=== PATIENT | female | born 1990 | race Caucasian/White ===

== ENCOUNTER 2019-09-02 17:50 | Emergency (ER) | payer MEDICAID, OTHER ==
[~2019-09-02] VITALS: Ht 152.4 cm; Wt 60.0 kg
[2019-09-02] MEDS ORDERED: LORazepam 1MG TABLET PO ONE (18:30)
[2019-09-02] MEDS ORDERED: LORazepam 1MG TABLET ONE (18:30)
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
[2019-09-02 19:00] LABS: BASOPHILS # (AUTO) 0.01 x10^3/uL (0-0.1); BASOPHILS % (AUTO) 0 % (0-1); EOSINOPHILS # (AUTO) 0.06 x10^3/uL (0-0.4); EOSINOPHILS % (AUTO) 1 % (1-7); LYMPHOCYTES # (AUTO) 2.17 x10^3/uL (1-3.4); LYMPHOCYTES % (AUTO) 32 % (22-44); MD NO; MEAN CORPUSCULAR HEMOGLOBIN 31.5 pg (27.0-34.8); MEAN CORPUSCULAR HGB CONC 34.1 g/dL (32.4-35.8); MEAN CORPUSCULAR VOLUME 92.1 fL (80-100); MEAN PLATELET VOLUME 8.3 fL (7.4-10.4); MONOCYTES # (AUTO) 0.27 x10^3/uL (0.2-0.8); MONOCYTES % (AUTO) 4 % (2-9); NEUTROPHILS # (AUTO) 4.16 x10^3/uL (1.8-6.8); NEUTROPHILS % (AUTO) 62 % (42-75); PLATELET COUNT 267 x10^3/uL (130-400); RED BLOOD COUNT 4.79 x10^6/uL (3.82-5.3); RED CELL DISTRIBUTION WIDTH 12.7 % (9.6-15.2)
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
[2019-09-02 19:06] LABS: ALBUMIN 4.8 g/dL (3.4-5.0); CALCIUM 8.6 mg/dL (8.5-10.1); CHLORIDE 116 mmol/L (98-107)
[2019-09-02 19:14] LABS: ALANINE AMINOTRANSFERASE 20 U/L (12-78); ALKALINE PHOSPHATASE 51 U/L (45-117); ANION GAP 7 mmol/L (5-15); BILIRUBIN,TOTAL 0.7 mg/dL (0.2-1.0); CREATININE 0.81 mg/dL (0.55-1.02); SALICYLATE LEVEL 4.7 mg/dL (2.8-20.0); TOTAL PROTEIN 8.2 g/dL (6.4-8.2)
[2019-09-02] MEDS: PLEASE ENTER ALLERGIES MC SCH (19:30)
[2019-09-02] MEDS ORDERED: ZIPRASIDONE 20 MG INJ IM ONE (20:00)
[2019-09-02] MEDS ORDERED: LORazepam 2 MG/ML, 1ML ONE (20:00)
--- NOTE | 2019-09-02 20:00 | NUR ---
LEONARDA lund arrived. as
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
--- NOTE | 2019-09-02 20:24 | NUR ---
report to christal lund. as
[2019-09-02] MEDS ORDERED: ONDANSETRON ODT 4 MG PO ONE (20:30)
[2019-09-02] MEDS ORDERED: LORazepam 2 MG/ML, 1ML IM ONE (20:30)
[2019-09-02] MEDS ORDERED: ONDANSETRON ODT 4 MG ONE (20:31)
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
--- NOTE | 2019-09-02 22:48 | NUR ---
Sleeping, drowsy but cooperative. Addendum: 09/03/19 at 0508 by JOSUÉ SITTER AT BEDSIDE FOR CONTINOUS MONITORING
--- NOTE | 2019-09-03 00:50 | NUR ---
Pt has been sleeping, easily aroused, no acute distress noted.
--- NOTE | 2019-09-03 01:16 | NUR ---
pt resting on gurney with eyes closed, nadn, equal chest/fall observed, room secured, sitter at doorway for continous monitoring. hospital bed ordered.
--- NOTE | 2019-09-03 02:51 | NUR ---
Pt up to restroom for urine sample, sample from patient appears diluted and the specimen cup was cold to the touch. Sample sent to lab.
[2019-09-03] MEDS: PLEASE ENTER ALLERGIES MC SCH (03:30)
[2019-09-03 03:39] LABS: AMPHETAMINE SCREEN, URINE Negative (Negative); BARBITURATE SCREEN, URINE Negative (Negative); BENZODIAZEPINE SCREEN, URINE Negative (Negative); CANNABINOID SCREEN, URINE Positive (Negative); COCAINE SCREEN, URINE Negative (Negative); METHADONE SCREEN, URINE Negative (Negative); OPIATE SCREEN, URINE Negative (Negative)
--- NOTE | 2019-09-03 04:20 | NUR ---
PROVIDED PT WITH HOSPITAL BED, ROOM REMAINS SECURED, SITTER AT DOORWAY FOR CONTINOUS MONITORING
--- NOTE | 2019-09-03 05:12 | NUR ---
Pt sleeping, equal chest rise, no acute distress noted.
--- NOTE | 2019-09-03 06:16 | NUR ---
Reported to ER provider of medication recommendations by LEONARDA pt also requesting nicotine patch and c/o strong. Per provider he will place orders.
[2019-09-03] MEDS ORDERED: AZITHROMYCIN 500 MG TABLET ONE (06:21)
[2019-09-03] MEDS ORDERED: NICOTINE 21 MG/24 HR PATCH.TD24 ONE (06:21)
[2019-09-03] MEDS ORDERED: CEFTRIAXONE 250 MG ONE (06:21)
[2019-09-03] MEDS ORDERED: IBUPROFEN 200 MG TABLET ONE (06:22)
[2019-09-03] MEDS ORDERED: NICOTINE 21 MG/24 HR PATCH.TD24 TD ONE (06:30)
[2019-09-03] MEDS ORDERED: AZITHROMYCIN 500 MG TABLET PO ONE (06:30)
[2019-09-03] MEDS ORDERED: CEFTRIAXONE 250 MG IM ONE (06:30)
[2019-09-03] MEDS ORDERED: IBUPROFEN 200 MG TABLET PO ONE (06:30)
--- NOTE | 2019-09-03 06:33 | NUR ---
Medicated per MAR.
[2019-09-03 06:53] VITALS: BP 102/60
--- NOTE | 2019-09-03 06:53 | NUR ---
Assumed care of pt t 0645. Report erceived from RICKY Blount. Pt is awake and resting comfortably in bed. Sittter at doorway.
--- NOTE | 2019-09-03 06:53 | NUR ---
Report given to Caryl GARCÍA.
--- NOTE | 2019-09-03 08:02 | NUR ---
Pt asleep in bed. Respirations are even and unlabored. Sitter at doorway.
--- NOTE | 2019-09-03 09:03 | NUR ---
Pt still sleeping. Breathing even and unlabored. Breakfast tray remains untouched despite PSA attempt to get pt to eat a little. Sitter at doorway.
--- NOTE | 2019-09-03 10:05 | NUR ---
Pt cooperative. Up to make a phone call, steady on her feet, PSA with pt. Requested water.
--- NOTE | 2019-09-03 10:13 | NUR ---
Pt tearful after leaving phone message for . Said she apologized to him for her "drinking problem" and DUI. Pt stated that her is really mad at her and wants her to stop drinking.
--- NOTE | 2019-09-03 11:13 | NUR ---
Pt sleeping comfortably in bed. Sitter at doorway.
--- NOTE | 2019-09-03 11:40 | NUR ---
Jordyn Pham APRN assessing pt at bedside.
[2019-09-03] MEDS ORDERED: LORazepam 1MG TABLET PO ONE (12:30)
[2019-09-03] MEDS ORDERED: SERTRALINE 50MG TABLET PO SCH (12:30)
[2019-09-03] MEDS ORDERED: SERTRALINE 50MG TABLET ONE (12:47)
[2019-09-03] MEDS ORDERED: LORazepam 1MG TABLET ONE (12:47)
--- NOTE | 2019-09-03 13:12 | NUR ---
Pt resting comfortably in bed. Ate lunch. Ativan 1mg PO and first dose of Zoloft 50mg PO given to pt after lunch. Sitter at bedside.
--- NOTE | 2019-09-03 13:57 | NUR ---
Pt sleeping. RR even and unlabored. No distress. Sitter at doorway.
--- NOTE | 2019-09-03 15:04 | NUR ---
Pt tearful in bed. casework manager at bedside. Was escorted to bathroom earlier by PSA.
--- NOTE | 2019-09-03 15:28 | NUR ---
is at bedside talking to [employer] Eng[employer].
--- NOTE | 2019-09-03 16:00 | NUR ---
Pt resting in room with at bedside. Pt will be discharged today, per FERNY Pham APRN.
== END 2019-09-03 16:47 | disposition home or self-care (01) ==
LOC: ED 09-03 05:55
DX: R45.851 Suicidal ideations (principal); F10.220 Alcohol dependence with intoxication, uncomplicated; F32.9 Major depressive disorder, single episode, unspecified; Y90.0 Blood alcohol level of less than 20 mg/100 ml
CPT/HCPCS: 36415; 80053; 80307; 84703; 85025; 96372; 99284; J0696; J2060; Q0162

== ENCOUNTER 2019-12-25 08:01 | Emergency (ER) | payer SELFPAY ==
[~2019-12-25] VITALS: Ht 152.4 cm; Wt 58.0 kg
--- NOTE | 2019-12-25 08:12 | NUR ---
pt changed into a gown. she is tearful, and afraid for her current social situation. newly homeless. comfort measufres provided, and we are awiaiting an md to assess.
[2019-12-25] MEDS ORDERED: LORazepam 2 MG/ML, 1ML IVPush ONE (08:30)
[2019-12-25] MEDS ORDERED: SODIUM CHLORIDE 0.9% 1,000ML IVBOLUS ONE (08:30)
[2019-12-25] MEDS ORDERED: LORazepam 2 MG/ML, 1ML ONE (08:33)
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
[2019-12-25 08:53] LABS: BASOPHILS # (AUTO) 0.07 x10^3/uL (0-0.1); BASOPHILS % (AUTO) 1 % (0-1); EOSINOPHILS # (AUTO) 0.02 x10^3/uL (0-0.4); EOSINOPHILS % (AUTO) 0 % (1-7); LYMPHOCYTES # (AUTO) 1.52 x10^3/uL (1-3.4); LYMPHOCYTES % (AUTO) 28 % (22-44); MD NO; MEAN CORPUSCULAR HEMOGLOBIN 32.3 pg (27.0-34.8); MEAN PLATELET VOLUME 8.2 fL (7.4-10.4); MONOCYTES # (AUTO) 0.44 x10^3/uL (0.2-0.8); MONOCYTES % (AUTO) 8 % (2-9); NEUTROPHILS # (AUTO) 3.38 x10^3/uL (1.8-6.8); NEUTROPHILS % (AUTO) 62 % (42-75); PLATELET COUNT 274 x10^3/uL (130-400)
[2019-12-25 08:57] LABS: ALBUMIN 3.7 g/dL (3.4-5.0); ANION GAP 13 mmol/L (5-15); CALCIUM 8.7 mg/dL (8.5-10.1); CHLORIDE 108 mmol/L (98-107); CREATININE 0.85 mg/dL (0.55-1.02)
--- NOTE | 2019-12-25 08:57 | NUR ---
Pt given 2mg Ativan, resting, no needs at this time.
[2019-12-25 09:01] LABS: TROPONIN I < 0.015 ng/mL (0.000-0.045)
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
--- NOTE | 2019-12-25 09:29 | NUR ---
Pt resting post ativan, BP improved, no needs at this time. Waiting on UA.
--- NOTE | 2019-12-25 10:31 | NUR ---
Pt sleeping, arousable to light stimulation. Will continue to monitor.
--- NOTE | 2019-12-25 11:20 | NUR ---
Pt taken to bathroom via wheelchair, unsteady on feet. UA provided. 2nd bolus infusing. [employer] at bedside.
[2019-12-25] MEDS ORDERED: PRAZ2CAP2 PO (11:22)
[2019-12-25] MEDS ORDERED: ATEN50TA41 PO (11:23)
[2019-12-25 12:01] LABS: MICROSCOPIC INDICATED
[2019-12-25 13:15] VITALS: BP 141/79
== END 2019-12-25 13:17 | disposition home or self-care (01) ==
LOC: ED 11:58
DX: F15.129 Other stimulant abuse with intoxication, unspecified (principal); F41.1 Generalized anxiety disorder; R45.1 Restlessness and agitation; R44.3 Hallucinations, unspecified; R94.31 Abnormal electrocardiogram [ECG] [EKG]
CPT/HCPCS: 36415; 71045; 80048; 81001; 82040; 84484; 84703; 85025; 87086; 93005; 96374; 99285; J2060; J7030

== ENCOUNTER 2020-06-27 19:50 | Emergency (ER) | payer OTHER ==
[~2020-06-27] VITALS: Ht 154.9 cm; Wt 55.0 kg
[~2020-06-27 19:50] MED LIST: ATEN50TA41 PO; PRAZ2CAP2 PO
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
[2020-06-27 20:04] VITALS: BP 158/98
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
--- NOTE | 2020-06-27 20:28 | NUR ---
went to start iv and patient screaming that she wants to leave. she was adament that she wants no iv / no meds/no blood draw and wants to leave. discussed to pile driver operator barge mounted and all tried to get patient to stay she demanded to leave. ama paper signed
[2020-06-27] MEDS ORDERED: LORazepam 2 MG/ML, 1ML IVPush ONE (20:30)
[2020-06-27] MEDS ORDERED: SODIUM CHLORIDE FLUSH 10ML SYR IVF ONE (20:30)
[2020-06-27] MEDS ORDERED: SODIUM CHLORIDE 0.9% 1,000ML IVBOLUS ONE (20:30)
--- NOTE | 2020-06-27 20:34 | NUR ---
patient ambulatory and was mostly concerned with where her boyfriend was repeating he was suppose to be here. she refused screaming "NO I"M LEAVING" after attempting to help. she left crying but strong on feet and oriented.
== END 2020-06-27 20:37 | disposition left against medical advice (07) ==
LOC: ED 20:30
DX: N93.9 Abnormal uterine and vaginal bleeding, unspecified (principal)
CPT/HCPCS: 99281